=== PATIENT | female | born 1965 | race Caucasian/White ===

== ENCOUNTER 2018-09-22 06:20 | Day surgery (SDC) | payer OTHER ==
[2018-09-21 10:08] VITALS: BMI 28.3
[2018-09-22] MEDS ORDERED: MIDAZOLAM HCL 2 MG/2 ML SINGLE DOSE VIAL ONE (08:54)
[2018-09-22] MEDS ORDERED: PROPOFOL 20 ML ONE (08:54)
[2018-09-22] MEDS ORDERED: DEXAMETHASONE SOD PHOSPHATE 4 MG/1 ML VIAL ONE (08:55)
[2018-09-22] MEDS ORDERED: LIDOCAINE HCL/PF 2% SDV 5ML VIAL ONE (08:55)
[2018-09-22] MEDS ORDERED: LIDOCAINE HCL 1%, 10 MG/ML (20ML VIAL) ONE (09:02)
[2018-09-22] MEDS ORDERED: ONDANSETRON 4 MG/2 ML VIAL IVPUSH PRN (09:22)
[2018-09-22] MEDS ORDERED: oxyCODONE HCL 5 MG TABLET PO PRN (09:22)
[2018-09-22] MEDS ORDERED: LACTATED RINGERS SOLUTION 1,000 ML IV SCH (09:30)
[2018-09-22] MEDS ORDERED: LIDOCAINE HCL 1%, 10 MG/ML (50 mL VIAL) IJ ONE (09:54)
[2018-09-22] MEDS ORDERED: KETOROLAC TROMETHAMINE 30 MG/1 ML VIAL ONE (10:03)
[2018-09-22] MEDS ORDERED: SEVOFLURANE 250 ML BTL ONE (10:27)
[2018-09-22] MEDS ORDERED: DESFLURANE GAS 240 ML BOTTLE IH ONE (10:27)
[2018-09-22] MEDS ORDERED: ONDANSETRON 4 MG/2 ML VIAL ONE (10:51)
[2018-09-22] MEDS ORDERED: ACETAMINOPHEN INJECTION 100 ML IVPB ONE (10:52)
[2018-09-22] MEDS ORDERED: ACETAMINOPHEN 1000 MG/100 ML VIAL (NON FORMULARY) IVPB ONE ×2 (11:00→11:29)
--- NOTE | 2018-09-22 11:09 | OP ---
DATE OF OPERATION: 09/22/2018 PREOPERATIVE DIAGNOSIS: Right breast mass. POSTOPERATIVE DIAGNOSIS: Right breast mass. PROCEDURE: Excision of right breast mass. SURGEON: Angela Tran MD ANESTHESIA: General. ESTIMATED BLOOD LOSS: Minimal. COMPLICATIONS: None. This is a sterile procedure. INDICATIONS: Patient presented with a palpable, tender mass in the right breast 1030 to 11 o'clock location 10-12 cm from the nipple just below the axillary line. Mammogram and ultrasound were negative. After discussion, the decision was to excise this. She was constantly worried. It was best felt sitting up; however, I was able to mari it in the holding area with her sitting up and lying down. PROCEDURE IN DETAIL: The patient was brought into the operating room at [facility]. After induction of general anesthesia, the right breast was prepped in the usual sterile fashion. The little skin lesion overlying this mass was also excised with an ellipse of skin, and this entire mass was excised en bloc and sent as an excision of right breast mass. Hemostasis was assured with electrocautery. The parenchyma was approximated with interrupted 2-0 Vicryl. Skin was approximated with interrupted 3-0 Vicryl and running 4-0 Prolene. A sterile dressing with Tegaderm and 4 x 4 was applied. She tolerated the procedure well and was taken to recovery in good condition. ANGELA TRAN M.D. [id number]
[2018-09-22] MEDS ORDERED: oxyCODONE HCL 5 MG TABLET ONE (12:06)
[2018-09-22 16:28] VITALS: TEMP 97.8
[2018-09-22 16:32] VITALS: BP 140/76; PULSE 80
--- NOTE | 2018-09-25 17:27 | PATH ---
Surgical Pathology Report Patient Name: JESS VANN [facility]. Rec. #: [id number] /Age/Gender: 1965 (Age: 53) / F Account: [id number] Location: [facility] SURGICAL Taken: 09/22/2018 Received: 09/22/2018 Reported: 09/25/2018 Physicians: Angela Phillips M.D. Specimen(s) Received RIGHT BREAST MASS Clinical History Right breast mass palpable US (-) ?Lipoma Final Diagnosis BREAST, RIGHT, MASS, EXCISION: BENIGN FIBROADIPOSE TISSUE. NO BREAST PARENCHYMA IDENTIFIED. SKIN WITHOUT SIGNIFICANT PATHOLOGIC FINDINGS. Comment: Findings are compatible with clinical impression of lipoma. Suggest clinical/radiological correlation. Electronically Signed Alexandria Morales M.D. Gross Description Received in formalin labeled "right breast mass," is a 5.5 x 5.5 x 1.7 cm unoriented portion of adipose tissue which is surfaced by a 2.0 x 0.6 cm hutton, elliptical, unremarkable portion of skin. There is no needle localization wire present. The specimen is inked blue and serially sectioned. Sectioning reveals homogeneous yellow adipose tissue. No discrete mass is identified. [employer] Rol[employer] Setter sections are submitted in 5 cassettes. saudi/09/22/2018
== END 2018-09-22 14:15 | disposition home or self-care (01) ==
LOC: JASU-SURG 06:20
PROVIDERS: ATTEND Surgery
PROC: 0HBT0ZX Excision of Right Breast, Open Approach, Diagnostic (ICD-10-PCS; principal; 2018-09-22 09:00)
DX: N60.21 Fibroadenosis of right breast (principal)
CPT/HCPCS: 82962; 88307-TC; 94760; J0131

== ENCOUNTER 2018-11-14 13:51 | Emergency (ER) | payer OTHER ==
[2018-11-14 13:58] VITALS: TEMP 99.1; BMI 28.3
--- NOTE | 2018-11-14 14:25 | PDOC ---
History of Present Illness - General Chief Complaint: Pain, Acute Stated Complaint: ABD PAIN Time Seen by Provider: 11/14/18 14:22 History Source: Patient Exam Limitations: No Limitations - History of Present Illness Initial Comments: 11/14/18 14:24 53YOF with h/o IDDM (nonadherent to insulin regimen and hasn't been regularly taking her CBG), asthma, gastric ulcer, spinal fusion, anemia, COPD, HTN, HLD, and palpitations, who p/w 2 weeks worsening LUQ abdominal pain intermittently radiating to her left back, worsened significantly over the past 3 days. With associated nausea, several episodes self-induced NBNB vomiting, loose diarrhea. Otherwise denies other symptoms. Was seen at [facility] ED 2 days ago, had labs and CT abdomen/pelvis with contrast, sent home after they found nothing per the patient's report. She saw her PCP Karen Martinez yesterday who recommended if the pain worsens to come here to the ED. Past History - Past Medical History Allergies/Adverse Reactions: Allergies Allergy/AdvReac Type Severity Reaction Status Date / Time banana Allergy Verified 11/14/18 13:56 kiwi Allergy Itching Verified 11/14/18 13:56 TAPE Allergy Severe Uncoded 11/14/18 13:56 Home Medications: Ambulatory Orders Albuterol Sulfate Inhaler - [Ventolin HFA Inhaler -] 2 inh PO Q4H PRN 03/17/16 Albuterol 0.083% Nebulizer Darcie [Ventolin 0.083% Nebulizer Soln -] 1 amp NEB Q4H PRN #0 amp 03/20/16 Butalb/Acetaminophen/Caffeine [Bqvgsw-Ksmctftg-Puac 50-300-40] 1 each PO PRN PRN 09/21/18 Clonazepam 1 mg PO BID 09/21/18 Desvenlafaxine [Desvenlafaxine ER] 100 mg PO DAILY 09/21/18 Insulin Glargine,Hum.rec.anlog [Lantus] 65 units SQ HS 09/21/18 Insulin Lispro [Humalog] 2 units SQ ASDIR 09/21/18 Linagliptin [Tradjenta] 5 mg PO DAILY 09/21/18 Mirtazapine [Remeron -] 45 mg PO BID 09/21/18 Oxybutynin Chloride [Ditropan Xl] 10 mg PO DAILY 09/21/18 Potassium Chloride [K-Dur -] 20 meq PO DAILY 09/21/18 Quetiapine Fumarate [Seroquel -] 200 mg PO HS 09/21/18 Ramipril 10 mg PO DAILY 09/21/18 Salmeterol/Fluticasone [Advair 100Mcg/50Mcg -] 2 puff .ROUTE BID 09/21/18 Temazepam [Restoril] 30 mg PO HS 09/21/18 Verapamil HCl [Verapamil ER] 180 mg PO DAILY 09/21/18 Levofloxacin [Levaquin] 750 mg PO DAILY #7 tablet 11/14/18 metroNIDAZOLE [Flagyl -] 500 mg PO TID #21 tablet 11/14/18 Anemia: Yes Asthma: Yes Cancer: Yes (Cervical Ca s/p hysterectomy 15years ago) Cardiac Disorders: Yes (palpitation, cad) COPD: Yes DVT: No Diabetes: Yes (iddm, neuropathy) GI Disorders: Yes (ULCER, GERD) HTN: Yes Hypercholesterolemia: Yes Liver Disease: Yes (FATTY) Thyroid Disease: Yes - Surgical History Appendectomy: Yes Neurologic Surgery: Yes (NECK CERVICAL SX Dec) Orthopedic Surgery: Yes (amber. bunionectomy- pt. has screws) - Immunization History Immunization Up to Date: Yes - Suicide/Smoking/Psychosocial Hx Smoking Status: Yes Smoking History: Current every day smoker Have you smoked in the past 12 months: Yes Number of Cigarettes Smoked Daily: 7 Information on smoking cessation initiated: No 'Breaking Loose' booklet given: 05/08/18 Hx Alcohol Use: No Drug/Substance Use Hx: No Substance Use Type: None Hx Substance Use Treatment: No Review of Systems - Review of Systems Able to Perform ROS?: Yes Comments:: GEN: malaise, no fever, chills, generalized weakness, or weight change HEENT: no ear pain, sore throat, vision change, or eye pain CV: no chest pain, palpitations, lightheadedness, syncope, or edema RESP: no cough, wheezing, or SOB GI: abdominal pain, nausea, vomiting, diarrhea, no constipation, or white/black/ bloody stool : no dysuria, hematuria, incontinence, retention, bleeding, or discharge MSK: no neck/back pain, muscle weakness/pain, or joint swelling/pain NEURO: no headache, seizure, vertigo, numbness, tingling, or focal weakness PSYCH: no substance use, no behavior change SKIN: no jaundice, no rash ROS otherwise negative except as noted in HPI *Physical Exam - Vital Signs Last Vital Signs Temp Pulse Resp BP Pulse Ox 99.1 F 78 18 149/77 97 11/14/18 13:56 11/14/18 13:56 11/14/18 13:56 11/14/18 13:56 11/14/18 13:56 11/14/18 15:44 GENERAL: nontoxic appearing, slightly uncomfortable on repositioning, A/Ox4, no distress, answers questions appropriately HEENT: PERRLA, EOMI, moist mucous membranes NECK/BACK: no midline ttp, no spinal stepoff or deformity, no hematoma, full ROM , neck supple CARDIOVASCULAR: regular rate/rhythm, normal S1S2, no MGR, strong peripheral pulses, capillary refill <2 seconds, extremities wwp, no edema LUNGS/RESPIRATORY: no respiratory distress, CTAB GI/ABDOMEN: distended but soft, symmetric kceu-[id number]-kcca, normoactive BS, soft, moderate LUQ ttp, mild umbilical ttp, otherwise no ttp, no midline pulsatile masses, no peritoneal signs : no CVA tenderness EXTREMITIES: no muscle atrophy, no acute deformity, no edema SKIN: warm and dry, no pallor, no jaundice, no rash, no bruising, no skin breakdown, no cuts, no lesions NEUROLOGICAL: GCS 15, CN II-XII grossly intact, 5/5 strength proximally and distally, no facial droop Moderate Sedation - Procedure Monitoring Vital Signs: Procedure Monitoring Vital Signs Temperature 99.1 F 11/14/18 13:56 Pulse Rate 78 11/14/18 13:56 Respiratory Rate 18 11/14/18 13:56 Blood Pressure 149/77 11/14/18 13:56 O2 Sat by Pulse Oximetry (%) 97 11/14/18 13:56 Procedures - Bedside Ultrasound Bedside Ultrasound: Gallbladder Remarks: Study: GB Indication: LUQ/umbilical tenderness Findings: No stones, sludge, pericholecystic fluid, wall thickening, distention , or CBD dilatation. Conclusion: Normal GB study ED Treatment Course - LABORATORY CBC & Chemistry Diagram: 11/14/18 15:10 11/14/18 15:10 Medical Decision Making - Medical Decision Making 53YOF p/w LUQ abdominal pain, nausea, diarrhea. Pt reports having normal labs and CT ab/pel with IV contrast 2 days ago at [facility]. Initial Vital Signs Temp Pulse Resp BP Pulse Ox 99.1 F 78 18 149/77 97 11/14/18 13:56 11/14/18 13:56 11/14/18 13:56 11/14/18 13:56 11/14/18 13:56 DDX IBNLT: pancreatitis, diverticulitis wwo abscess or perforation, colitis, UTI /pyelonephritis, malignancy, hernia, gastritis, PUD, ACS, renal colic, SBO, bowel ischemia, bowel perforation, cholecystitis, musculoskeletal, constipation , etc. W/U ordered: CBCD CMP UA UCx Lipase CT Ab/Pel with IV/PO contrast TX ordered: IVF, Ofirmev, Pepcid POCUS-GB: Normal exam, see procedures section. Laboratory Tests 11/14/18 11/14/18 11/14/18 14:55 15:09 15:09 WBC RBC Hgb Hct MCV MCH MCHC RDW Plt Count MPV Absolute Neuts (auto) Neutrophils % Lymphocytes % Monocytes % Eosinophils % Basophils % Nucleated RBC % Sodium Potassium Chloride Carbon Dioxide Anion Gap BUN Creatinine Creat Clearance w eGFR Random Glucose Lactic Acid 0.8 Calcium Magnesium Total Bilirubin AST ALT Alkaline Phosphatase Creatine Kinase 145 Troponin I < 0.02 Total Protein Albumin Lipase Urine Color Ltyellow Urine Appearance Clear Urine pH 5.0 Ur Specific [place] 1.013 Urine Protein Negative Urine Glucose (UA) Negative Urine Ketones Negative Urine Blood Negative Urine Nitrite Negative Urine Bilirubin Negative Urine Urobilinogen Negative Ur Leukocyte Esterase Negative 11/14/18 11/14/18 11/14/18 15:10 15:10 15:10 WBC 9.5 RBC 3.90 Hgb 11.9 Hct 34.0 MCV 87.2 MCH 30.4 MCHC 34.9 RDW 13.6 Plt Count 266 MPV 8.1 D Absolute Neuts (auto) 6.6 Neutrophils % 68.8 D Lymphocytes % 25.8 D Monocytes % 4.3 D Eosinophils % 0.4 D Basophils % 0.7 Nucleated RBC % 0 Sodium 139 Potassium 3.8 Chloride 105 Carbon Dioxide 28 Anion Gap 6 L BUN 7 Creatinine 0.7 Creat Clearance w eGFR > 60 Random Glucose 107 H Lactic Acid Calcium 8.3 L Magnesium 1.8 Total Bilirubin 0.2 AST 25 ALT 31 Alkaline Phosphatase 94 Creatine Kinase Troponin I Total Protein 6.9 Albumin 3.4 Lipase 109 Urine Color Urine Appearance Urine pH Ur Specific [place] Urine Protein Urine Glucose (UA) Urine Ketones Urine Blood Urine Nitrite Urine Bilirubin Urine Urobilinogen Ur Leukocyte Esterase ABDOMEN PELVIS CT WITH CONTR Abdominal pain CT scan of the abdomen and pelvis following oral and intravenous contrast. Coronal and sagittal reformatted images were obtained 95 cc of Omnipaque 350 was intravenously injected Comparison: None available There is linear-like platelike atelectasis versus scarring in the posterior costophrenic angles. The heart is within normal limits in size. The liver is within normal limits in size with mild decreased attenuation suggestive of fatty infiltration. Evaluation of the spleen, pancreas , gallbladder, both adrenal glands and both kidneys appear unremarkable. The stomach is not distended significantly limiting evaluation of its wall. There is no evidence of small bowel obstruction. Normal-appearing terminal ileum. Nonvisualization of the appendix. Normal stool burden in the colon. There is nondistention of the mid sigmoid colon limiting evaluation of its wall with questionable few diverticula identified. No surrounding inflammatory changes are identified. Nondistention of the rectosigmoid junction. Cannot rule out wall thickening. Partially distended urinary bladder without wall thickening. Nonvisualization of the uterus. Perirectal and pericecal fat are clear. Note is made of a couple of left para-aortic lymph nodes with the largest measuring 1.2 x 0.6 cm which are nonspecific. No free air or free fluid in the abdomen pelvis. Normal size and enhancement of the abdominal aorta down through its bifurcation Visualized osseous structures appear intact Impression: Possible mild diffuse fatty infiltration of the liver. A couple of left para-aortic lymph nodes measuring up to 1.2 x 0.6 cm which are nonspecific. There is no evidence of small bowel obstruction. Nonvisualization of the appendix. Short segment of inadequate distention of the mid sigmoid colon limiting evaluation of its wall. There is also inadequate distention of the rectosigmoid junction. Cannot rule out wall thickening. Perirectal and pericecal fat are clear. Further evaluation is needed. Vital Signs Temperature 99.1 F 11/14/18 13:56 Pulse Rate 81 11/14/18 18:58 Respiratory Rate 16 11/14/18 18:58 Blood Pressure 137/74 11/14/18 18:58 O2 Sat by Pulse Oximetry (%) 99 11/14/18 18:58 Re-exam: abdominal exam benign, patient states feels better. DISCHARGE This patient has gotten significant relief of symptoms while in the ED. On last reassessment, vitals are wnl, pain is reasonably controlled, and exam is benign. Workup is not concerning for emergency-level pathology at this time. This patient is appropriate for discharge with close outpatient follow up. She is comfortable managing possible colitis at home, E-Rx sent for her antibiotics and first dose given in ED. She comfortable with this plan and will follow up with her primary care provider in 1-3 days. Specific return precautions are discussed and they will come back to the ER if necessary. *DC/Admit/Observation/Transfer Diagnosis at time of Disposition: Colitis, Nausea Abdominal pain Qualifiers: Abdominal location: left upper quadrant Qualified Code(s): R10.12 - Left upper quadrant pain Diarrhea Qualifiers: Diarrhea type: unspecified type Qualified Code(s): R19.7 - Diarrhea, unspecified - Discharge Dispostion Disposition: HOME Condition at time of disposition: Stable Decision to Admit order: No - Prescriptions Prescriptions: Levofloxacin [Levaquin] 750 mg PO DAILY #7 tablet metroNIDAZOLE [Flagyl -] 500 mg PO TID #21 tablet - Referrals Referrals: Karen Rudd MD [Primary Care Provider] - - Patient Instructions Additional Instructions: You were seen in the ER for abdominal pain. We did an exam, labs, and imaging, and found some evidence of colitis. We gave you a dose of your antibiotics here and send prescriptions for the remaining 2 antibiotic courses to your pharmacy. You need to take both the courses as prescribed, and finish them whether or not you feel better. After our assessment, we do not believe you are having a medical emergency at this time, and we believe you are safe to go home. Please follow up with your primary care provider in 1-3 days. Call their clinic, tell them you were seen in the ER, and tell them you need a follow-up. If you have any new or worsening symptoms, please come back to the ER at any time (24 hours a day). Especially come back for worsening abdominal pain, blood in the stool, vomiting you cannot control, inability to keep down liquids, or other symptoms. If you are having severe or life threatening symptoms, or symptoms that make it unsafe to drive or have someone drive you, please call 911. - Post Discharge Activity
[2018-11-14] MEDS ORDERED: ACETAMINOPHEN 1000 MG/100 ML VIAL (NON FORMULARY) IVPB ONE (14:56)
[2018-11-14] MEDS ORDERED: SODIUM CHLORIDE 0.9% 500 ML INFUS.BAG IV ONE (14:56)
[2018-11-14] MEDS ORDERED: FAMOTIDINE 20 MG/50 ML IVPB 20 MG/50 ML MG IVPB ONE ×2 (14:57→15:11)
[2018-11-14] MEDS ORDERED: ACETAMINOPHEN INJECTION 100 ML IVPB ONE (15:11)
[2018-11-14 15:46] LABS: URINE APPEARANCE CLEAR; URINE BILIRUBIN NEGATIVE (<2.0 mg/dL); URINE COLOR LTYELLOW; URINE GLUCOSE (UA) NEGATIVE (NEGATIVE); URINE KETONE NEGATIVE (NEGATIVE); URINE LEUK ESTERASE NEGATIVE (NEGATIVE); URINE NITRITE NEGATIVE (NEGATIVE); URINE PROTEIN NEGATIVE (NEGATIVE); URINE UROBILINOGEN NEGATIVE mg/dL (0.2-1.0)
[2018-11-14 15:56] LABS: ALBUMIN 3.4 g/dl (3.4-5.0); ALK PHOS 94 U/L (45-117); ANION GAP 6 MMOL/L (8-16); BILIRUBIN,TOTAL 0.2 mg/dL (0.2-1); BLOOD UREA NITROGEN 7 mg/dL (7-18); CALCIUM 8.3 mg/dL (8.5-10.1); CHLORIDE 105 mmol/L (98-107); CO2 28 mmol/L (21-32); CREATININE 0.7 mg/dL (0.55-1.3); GLUCOSE,RANDOM 107 mg/dL (74-106); MAGNESIUM 1.8 mg/dL (1.8-2.4); POTASSIUM 3.8 mmol/L (3.5-5.1); SGOT/AST 25 U/L (15-37); SGPT/ALT 31 U/L (13-61); SODIUM 139 mmol/L (136-145); TOT PROT 6.9 g/dl (6.4-8.2)
[2018-11-14 16:27] LABS: BASO % 0.7 % (0-2.0); EOS % 0.4 % (0-4.5); HEMOGLOBIN 11.9 GM/dL (10.7-15.3); LYMPH % 25.8 % (8-40); MCH 30.4 pg (25.7-33.7); MCHC 34.9 g/dl (32.0-36.0); MEAN CELL VOLUME 87.2 fl (80-96); MEAN PLT VOLUME 8.1 fl (7.5-11.1); MONO % 4.3 % (3.8-10.2); NEUT % 68.8 % (42.8-82.8); PLATELET COUNT 266 K/MM3 (134-434); RDW 13.6 % (11.6-15.6); WHITE BLOOD COUNT 9.5 K/mm3 (4.0-10.0)
[2018-11-14 18:59] VITALS: BP 137/74; PULSE 81
[2018-11-14] MEDS ORDERED: metroNIDAZOLE 250 MG TABLET PO ONE (20:27)
[2018-11-14] MEDS ORDERED: levoFLOXacin 750 MG TABLET PO ONE (20:27)
[2018-11-14] MEDS ORDERED: metroNIDAZOLE 250 MG TABLET ONE (20:56)
--- NOTE | 2018-11-15 09:42 | EKG ---
Test Reason : Blood Pressure : / mmHG Vent. Rate : 060 BPM Atrial Rate : 060 BPM P-R Int : 176 ms QRS Dur : 088 ms QT Int : 444 ms P-R-T Axes : 065 027 056 degrees QTc Int : 444 ms NORMAL SINUS RHYTHM T WAVE ABNORMALITY, CONSIDER ANTERIOR ISCHEMIA ABNORMAL ECG WHEN COMPARED WITH ECG OF 08-MAY-2018 14:18, VENT. RATE HAS DECREASED BY 30 BPM Confirmed by OCHOA BELL, IAIN ([id number]) on 11/15/2018 9:41:35 AM Referred By: Confirmed By:IAIN PACKER MD
== END 2018-11-14 21:19 | disposition home or self-care (01) ==
LOC: JER 13:51
PROC: 3E033GC Introduction of Other Therapeutic Substance into Peripheral Vein, Percutaneous Approach (ICD-10-PCS; principal; 2018-11-14)
PROC: 3E033NZ Introduction of Analgesics, Hypnotics, Sedatives into Peripheral Vein, Percutaneous Approach (ICD-10-PCS; 2018-11-14)
PROC: BF42ZZZ Ultrasonography of Gallbladder (ICD-10-PCS; 2018-11-14)
DX: K52.9 Noninfective gastroenteritis and colitis, unspecified (principal); E11.42 Type 2 diabetes mellitus with diabetic polyneuropathy; Z79.4 Long term (current) use of insulin; I25.10 Atherosclerotic heart disease of native coronary artery without angina pectoris; I10 Essential (primary) hypertension; E78.00 Pure hypercholesterolemia, unspecified; J44.9 Chronic obstructive pulmonary disease, unspecified; J45.909 Unspecified asthma, uncomplicated; D64.9 Anemia, unspecified; K21.9 Gastro-esophageal reflux disease without esophagitis; Z85.41 Personal history of malignant neoplasm of cervix uteri; Z90.79 Acquired absence of other genital organ(s)
CPT/HCPCS: 36415; 74177-TC; 80053; 81003; 82550; 83605; 83690; 83735; 84484; 85025; 93005; 93010; 99283-25; J0131; Q9967

== ENCOUNTER 2018-12-19 10:23 | Day surgery (SDC) | payer OTHER ==
[2018-12-19 11:12] VITALS: BMI 28.3
[2018-12-19 11:53] VITALS: TEMP 97.5
[2018-12-19 14:05] VITALS: BP 158/85; PULSE 73
--- NOTE | 2018-12-20 16:25 | PATH ---
Surgical Pathology Report Patient Name: JESS VANN [facility]. Rec. #: [id number] /Age/Gender: 1965 (Age: 53) / F Account: [id number] Location: [facility] [place]-ENDOSCOPY Taken: 12/19/2018 Received: 12/19/2018 Reported: 12/20/2018 Physicians: Virgil Curtis D.O. Specimen(s) Received A: BX DUODENUM B: BX BODY AND FUNDUS Clinical History Abdominal pain, family history of gastric cancer Postoperative diagnosis: Gastritis Final Diagnosis A. DUODENUM AND BULB, BIOPSY: DUODENAL MUCOSA WITH NO DIAGNOSTIC ABNORMALITIES. NO HISTOLOGIC EVIDENCE OF CELIAC DISEASE. B. BODY AND FUNDUS, BIOPSY: GASTRIC MUCOSA WITH ACTIVE CHRONIC GASTRITIS. IMMUNOSTAIN FOR H. PYLORI IS POSITIVE. NEGATIVE FOR INTESTINAL METAPLASIA. Electronically Signed Pascale Dotson M.D. Gross Description A. Received in formalin, labeled "duodenum and bulb BX" are 3 hutton, irregular portions of soft tissue measuring 0.1 and 0.2 cm. in greatest dimension. The specimens are submitted in toto in one cassette. B. Received in formalin, labeled "body and fundus BX" are 6 hutton, irregular portions of soft tissue measuring 0.1 and 0.2 cm. in greatest dimension. The specimens are submitted in toto in one cassette. MLJujuZ/12/19/2018 tamie/12/19/2018
== END 2018-12-19 12:45 | disposition home or self-care (01) ==
LOC: JASU-ENDO 10:23
PROVIDERS: ATTEND Internal Medicine Gastroenterology
PROC: 0DB68ZX Excision of Stomach, Via Natural or Artificial Opening Endoscopic, Diagnostic (ICD-10-PCS; 2018-12-19)
PROC: 0DB98ZX Excision of Duodenum, Via Natural or Artificial Opening Endoscopic, Diagnostic (ICD-10-PCS; principal; 2018-12-19 11:00)
DX: K29.70 Gastritis, unspecified, without bleeding (principal); R10.13 Epigastric pain; K29.80 Duodenitis without bleeding
CPT/HCPCS: 88305-TC; 88342-TC